=== PATIENT | male | born 1940 | race Two or more races ===

== ENCOUNTER 2024-11-23 21:17 | Inpatient (IN) | payer MEDICARE, OTHER ==
[~2024-11-23] VITALS: Ht 177.8 cm; Wt 69.9 kg
[~2024-11-23 21:17] MED LIST: CIPR-262 PO; LORA2VIA33 IM
[2024-11-23 23:14] LABS: BASOPHILS % (AUTO) 0.1 % (0.0-2.0); EOSINOPHILS # (AUTO) 0.3 K/uL (0.0-0.7); HEMATOCRIT 24 % (39-51); HEMOGLOBIN 8.1 g/dL (13.5-17.5); LYMPHOCYTES # (AUTO) 0.6 K/uL (0.8-4.8); LYMPHOCYTES % (AUTO) 9.5 % (20.0-44.0); MEAN CORPUSCULAR HEMOGLOBIN 37 PG (26.0-33.0); MEAN CORPUSCULAR HGB CONC 34 g/dl (31.0-36.0); MEAN CORPUSCULAR VOLUME 110 fL (80-96); MONOCYTES # (AUTO) 0.9 K/uL (0.1-1.30); MONOCYTES % (AUTO) 14.9 % (2.0-12.0); NEUTROPHILS # (AUTO) 4.5 K/uL (1.8-8.9); NEUTROPHILS % (AUTO) 71.5 % (43.0-81.0); RED BLOOD CELL COUNT(AUTO) 2.18 MIL/uL (4.5-6.0); RED CELL DISTRIBUTION WIDTH 19.3 % (11.5-15.0); WHITE BLOOD COUNT (AUTO) 6.3 K/uL (4.3-11.0)
[2024-11-23 23:34] LABS: CALCIUM, SERUM 9.8 mg/dL (8.5-10.1); CARBON DIOXIDE 28 mmol/L (21-32); CHLORIDE 114 mmol/L (98-107); CREATININE 1.4 mg/dL (0.6-1.3); GLUCOSE 57 mg/dL (74-106); POTASSIUM 4.7 mmol/L (3.5-5.1); SODIUM SERUM 149 mmol/L (136-145); UREA NITROGEN, BLOOD 57 mg/dL (7-18)
[2024-11-23 23:40] LABS: ACETAMINOPHEN < 10 ug/ml (10-30); ALANINE AMINOTRANSFERASE 81 U/L (12-78); ALBUMIN 3.4 g/dL (3.4-5.0); ALKALINE PHOSPHATASE 93 U/L (46-116); ASPARTATE AMINOTRANSFERASE 226 U/L (15-37); BILIRUBIN,DIRECT 1.1 mg/dL (0.0-0.2); TOTAL PROTEIN, SERUM 5.8 g/dL (6.4-8.2)
[2024-11-23 23:41] LABS: ALCOHOL, BLOOD < 3 mg/dL (0-10); SALICYLATE < 2.3 mg/dL (2.8-20.0)
[2024-11-23 23:48] LABS: PLATELET COUNT (AUTO) 29 K/uL (150-450)
[2024-11-24 00:07] LABS: AMPHETAMINE, URINE NEGATIVE (NEGATIVE); BARBITURATE, URINE NEGATIVE (NEGATIVE); BENZODIAZEPINE, URINE NEGATIVE (NEGATIVE); CANNABINOID, URINE NEGATIVE (NEGATIVE); COCCAINE, URINE NEGATIVE (NEGATIVE); PHENCYCLIDINE SCREEN,URINE NEGATIVE (NEGATIVE)
[2024-11-24 00:08] LABS: OPIATE, URINE POSITIVE (NEGATIVE)
[2024-11-24 00:27] LABS: APPEARANCE,URINE CLEAR (CLEAR); BILIRUBIN,URINE NEGATIVE (NEGATIVE); BLOOD, URINE 3+ Ery/uL (NEGATIVE); COLOR,URINE YELLOW (YELLOW); KETONES,URINE NEGATIVE (NEGATIVE); LEUKOCYTE ESTERASE ,URINE TRACE (NEGATIVE); NITRITE, URINE POSITIVE (NEGATIVE); PH,URINE 5.5 (5.0-8.0); PROTEIN,URINE 1+ mg/dl (NEGATIVE); UGLUCOSE NEGATIVE (NEGATIVE); UROBILINOGEN,URINE 0.2 EU/dL (0.2)
[2024-11-24 00:28] LABS: ADD URINE CULTURE YES; BACTERIA,URINE Moderate /HPF (None Seen); RBC,URINE 21-50 /HPF (0-2); SQUAMOUS EPITHELIAL CELL,UR Rare /HPF (None Seen)
[2024-11-24] MEDS ORDERED: Z GUARD REMEDY 4 OZ OINT TP PRN (00:30)
[2024-11-24] MEDS ORDERED: ONDANSETRON HCL/PF 4 MG/2 ML VIAL IVP PRN (00:30)
[2024-11-24] MEDS ORDERED: ACETAMINOPHEN 325 MG TABLET PO PRN ×2 (00:30→09:30)
[2024-11-24 00:33] LABS: ANISOCYTOSIS 1+; BASOPHILS % (MANUAL) 0 % (0.0-2.0); EOSINOPHILS % (MANUAL) 3 % (0-4); LYMPHOCYTES % (MANUAL) 11 % (16-48); MONOCYTES % (MANUAL) 14 % (0-11.0); NEUTROPHILS % (MANUAL) 72 (42-76); PLATELET ESTIMATE DECREASED
[2024-11-24] MEDS: IV NS 0.9% 1,000 ML BAG IV ONE (00:56)
[2024-11-24 03:40] VITALS: BP 101/57; TEMP 97.9; O2SAT 96
[2024-11-24] MEDS: IV D5W 1,000 ML IV PRN (04:38)
[2024-11-24] MEDS: CEFTRIAXONE 1 G in IV D5W 50 ML IV SCH (04:38)
[2024-11-24] MEDS: PANTOPRAZOLE 40 MG TABLET.DR PO SCH (06:31)
[2024-11-24 07:00] LABS: BASOPHILS % (AUTO) 0.2 % (0.0-2.0); EOSINOPHILS # (AUTO) 0.1 K/uL (0.0-0.7); EOSINOPHILS % (AUTO) 2.2 % (0.0-6.0); HEMATOCRIT 22 % (39-51); HEMOGLOBIN 7.9 g/dL (13.5-17.5); LYMPHOCYTES # (AUTO) 0.5 K/uL (0.8-4.8); LYMPHOCYTES % (AUTO) 9.3 % (20.0-44.0); MEAN CORPUSCULAR HEMOGLOBIN 38 PG (26.0-33.0); MEAN CORPUSCULAR HGB CONC 36 g/dl (31.0-36.0); MEAN CORPUSCULAR VOLUME 106 fL (80-96); MONOCYTES # (AUTO) 0.7 K/uL (0.1-1.30); NEUTROPHILS # (AUTO) 4.2 K/uL (1.8-8.9); NEUTROPHILS % (AUTO) 75.3 % (43.0-81.0); RED BLOOD CELL COUNT(AUTO) 2.09 MIL/uL (4.5-6.0); RED CELL DISTRIBUTION WIDTH 18.5 % (11.5-15.0); WHITE BLOOD COUNT (AUTO) 5.6 K/uL (4.3-11.0)
[2024-11-24 07:07] LABS: CALCIUM, SERUM 9.2 mg/dL (8.5-10.1); CREATININE 1.4 mg/dL (0.6-1.3); POTASSIUM 4.5 mmol/L (3.5-5.1)
[2024-11-24] MEDS ORDERED: ACET325T53 PO (08:57)
[2024-11-24] MEDS ORDERED: LACT20SO4 PO (08:57)
[2024-11-24] MEDS ORDERED: TIOT18CA3 INH (08:57)
[2024-11-24] MEDS ORDERED: IPRA3AMP23 NEB (08:57)
[2024-11-24] MEDS ORDERED: [UNRECOGNIZED DRUG - CODE] PO (08:57)
[2024-11-24] MEDS ORDERED: ERGO500093 PO (08:57)
[2024-11-24] MEDS ORDERED: ALBU6.7H9 IH (08:57)
[2024-11-24] MEDS ORDERED: FINA5TAB11 PO (08:57)
[2024-11-24] MEDS ORDERED: TAMS-12 PO (08:57)
[2024-11-24] MEDS ORDERED: MELA5TAB PO (08:57)
[2024-11-24] MEDS ORDERED: BREO ELLIPTA IH (08:57)
[2024-11-24] MEDS ORDERED: HEPARIN SODIUM, PORCINE 5000 UNITS/1 ML VIAL SQ SCH (09:00)
[2024-11-24 09:01] LABS: PLATELET COUNT (AUTO) 26 K/uL (150-450)
[2024-11-24] MEDS: IV D5/0.45 NACL 1,000 ML IV SCH (09:48)
[2024-11-24 11:40] LABS: LYMPHOCYTES % (MANUAL) 7 % (16-48); MONOCYTES % (MANUAL) 3 % (0-11.0); NEUTROPHILS % (MANUAL) 90 (42-76); PLATELET ESTIMATE DECREASED
[2024-11-24 11:41] LABS: ANISOCYTOSIS 1+; TARGET CELLS 1+
[2024-11-24] MEDS: LACTULOSE 10 G/15 ML UDC (PYXIS) PO SCH (13:00)
[2024-11-24] MEDS ORDERED: OLANZAPINE 10 MG VIAL IM PRN (13:30)
[2024-11-24] MEDS ORDERED: ALBUTEROL FS 2.5 MG/3 ML VIAL.NEB NEB PRN (13:30)
[2024-11-24] MEDS ORDERED: Medication Not On Formulary EA (Melatonin 5 MG) PO SCH (18:00)
[2024-11-24 20:00] VITALS: BP 96/54; TEMP 97.8; O2SAT 97
[2024-11-24 20:06] VITALS: O2SAT 96
[2024-11-24] MEDS: IPRATROPIUM NEB FS 0.5 MG/2.5 ML AMPUL.NEB NEB SCH (20:24)
[2024-11-24] MEDS: BUDESONIDE RESPULE INH 0.5 MG/2 ML AMPUL.NEB NEB SCH (20:24)
[2024-11-24 20:27] VITALS: O2SAT 99
[2024-11-25] VITALS (10 sets, daily range): BP systolic 93–100; BP diastolic 54–79; TEMP 97.3–98.4; O2SAT 93–99
[2024-11-25 06:48] LABS: ALBUMIN 3.1 g/dL (3.4-5.0); CREATININE 1.3 mg/dL (0.6-1.3); MAGNESIUM 2.6 mg/dL (1.8-2.4); PHOSPHORUS 4.4 mg/dL (2.5-4.9); POTASSIUM 4.2 mmol/L (3.5-5.1)
[2024-11-25 07:08] LABS: THYROID STIMULATING HORMONE 10.65 uIU/mL (0.358-3.74)
[2024-11-25 07:13] LABS: BASOPHILS % (AUTO) 0.1 % (0.0-2.0); EOSINOPHILS # (AUTO) 0.3 K/uL (0.0-0.7); EOSINOPHILS % (AUTO) 3.7 % (0.0-6.0); HEMATOCRIT 23 % (39-51); HEMOGLOBIN 7.8 g/dL (13.5-17.5); LYMPHOCYTES # (AUTO) 0.7 K/uL (0.8-4.8); LYMPHOCYTES % (AUTO) 8.7 % (20.0-44.0); MEAN CORPUSCULAR HEMOGLOBIN 36 PG (26.0-33.0); MEAN CORPUSCULAR HGB CONC 35 g/dl (31.0-36.0); MEAN CORPUSCULAR VOLUME 104 fL (80-96); MONOCYTES # (AUTO) 0.9 K/uL (0.1-1.30); MONOCYTES % (AUTO) 11.4 % (2.0-12.0); NEUTROPHILS # (AUTO) 5.7 K/uL (1.8-8.9); NEUTROPHILS % (AUTO) 76.1 % (43.0-81.0); RED BLOOD CELL COUNT(AUTO) 2.18 MIL/uL (4.5-6.0); RED CELL DISTRIBUTION WIDTH 18.6 % (11.5-15.0); WHITE BLOOD COUNT (AUTO) 7.5 K/uL (4.3-11.0)
[2024-11-25 07:17] LABS: BILIRUBIN,TOTAL 2.8 mg/dL (0.2-1.0); TOTAL PROTEIN, SERUM 5.8 g/dL (6.4-8.2)
[2024-11-25] MEDS: LEVOTHYROXINE SODIUM 100 MCG TABLET PO SCH (07:30)
[2024-11-25 07:42] LABS: PLATELET COUNT (AUTO) 29 K/uL (150-450)
[2024-11-25] MEDS: TAMSULOSIN 0.4 MG CAP.SR.24H PO SCH (08:43)
[2024-11-25] MEDS: FINASTERIDE (5 MG) 5 MG TABLET PO SCH (08:43)
[2024-11-25 09:15] LABS: LYMPHOCYTES % (MANUAL) 8 % (16-48); MONOCYTES % (MANUAL) 3 % (0-11.0); NEUTROPHILS % (MANUAL) 89 (42-76); PLATELET ESTIMATE DECREASED
[2024-11-25 09:16] LABS: ANISOCYTOSIS 1+; TARGET CELLS 1+
[2024-11-26] VITALS (12 sets, daily range): BP systolic 94–109; BP diastolic 50–84; TEMP 95.3–97.5; O2SAT 93–98
[2024-11-26 07:35] LABS: CALCIUM, SERUM 8.8 mg/dL (8.5-10.1); CREATININE 1.4 mg/dL (0.6-1.3); MAGNESIUM 2.7 mg/dL (1.8-2.4); PHOSPHORUS 3.7 mg/dL (2.5-4.9); POTASSIUM 4.1 mmol/L (3.5-5.1)
[2024-11-26 08:03] LABS: BASOPHILS % (AUTO) 0.1 % (0.0-2.0); EOSINOPHILS # (AUTO) 0.2 K/uL (0.0-0.7); EOSINOPHILS % (AUTO) 2.9 % (0.0-6.0); HEMATOCRIT 21 % (39-51); HEMOGLOBIN 7.5 g/dL (13.5-17.5); LYMPHOCYTES # (AUTO) 0.8 K/uL (0.8-4.8); LYMPHOCYTES % (AUTO) 9.8 % (20.0-44.0); MEAN CORPUSCULAR HEMOGLOBIN 36 PG (26.0-33.0); MEAN CORPUSCULAR HGB CONC 35 g/dl (31.0-36.0); MEAN CORPUSCULAR VOLUME 104 fL (80-96); MONOCYTES # (AUTO) 0.9 K/uL (0.1-1.30); MONOCYTES % (AUTO) 11.7 % (2.0-12.0); NEUTROPHILS # (AUTO) 6.1 K/uL (1.8-8.9); NEUTROPHILS % (AUTO) 75.5 % (43.0-81.0); RED BLOOD CELL COUNT(AUTO) 2.05 MIL/uL (4.5-6.0); RED CELL DISTRIBUTION WIDTH 18.5 % (11.5-15.0)
[2024-11-26 08:16] LABS: PLATELET COUNT (AUTO) 28 K/uL (150-450)
[2024-11-26] MEDS ORDERED: LORAZEPAM INJ 2 MG/ML VIAL IV PRN (11:00)
[2024-11-26 19:59] LABS: ANISOCYTOSIS 1+; BAND % (MANUAL) 4 % (0.0-5.0); EOSINOPHILS % (MANUAL) 5 % (0-4); LYMPHOCYTES % (MANUAL) 13 % (16-48); MONOCYTES % (MANUAL) 2 % (0-11.0); NEUTROPHILS % (MANUAL) 76 (42-76); PLATELET ESTIMATE DECREASED; ROULEAUX 1+
[2024-11-26 20:00] LABS: TARGET CELLS RARE
[2024-11-27] VITALS (17 sets, daily range): BP systolic 94–108; BP diastolic 59–63; TEMP 98.4–99.4; O2SAT 88–100
[2024-11-27] MEDS: RIFAXIMIN 550 MG TABLET PO SCH (08:41)
[2024-11-27] MEDS: ALBUTEROL FS 2.5 MG/3 ML VIAL.NEB NEB PRN (08:59)
[2024-11-27 10:44] LABS: CREATININE 1.5 mg/dL (0.6-1.3); POTASSIUM 4.3 mmol/L (3.5-5.1)
[2024-11-27] MEDS: IPRATROPIUM NEB FS 0.5 MG/2.5 ML AMPUL.NEB NEB SCH ×2 (10:44→23:36)
[2024-11-27 10:46] LABS: BASOPHILS % (AUTO) 0.2 % (0.0-2.0); EOSINOPHILS # (AUTO) 0.2 K/uL (0.0-0.7); EOSINOPHILS % (AUTO) 1.7 % (0.0-6.0); HEMATOCRIT 22 % (39-51); HEMOGLOBIN 7.6 g/dL (13.5-17.5); LYMPHOCYTES # (AUTO) 0.9 K/uL (0.8-4.8); LYMPHOCYTES % (AUTO) 10.1 % (20.0-44.0); MEAN CORPUSCULAR HEMOGLOBIN 37 PG (26.0-33.0); MEAN CORPUSCULAR HGB CONC 35 g/dl (31.0-36.0); MEAN CORPUSCULAR VOLUME 103 fL (80-96); MONOCYTES # (AUTO) 1.5 K/uL (0.1-1.30); MONOCYTES % (AUTO) 16.1 % (2.0-12.0); NEUTROPHILS # (AUTO) 6.7 K/uL (1.8-8.9); NEUTROPHILS % (AUTO) 71.9 % (43.0-81.0); RED BLOOD CELL COUNT(AUTO) 2.09 MIL/uL (4.5-6.0); RED CELL DISTRIBUTION WIDTH 19.2 % (11.5-15.0); WHITE BLOOD COUNT (AUTO) 9.4 K/uL (4.3-11.0)
[2024-11-27 10:50] LABS: PLATELET COUNT (AUTO) 32 K/uL (150-450)
[2024-11-27 11:07] LABS: PTH, INTACT 32 pg/mL (15-65)
[2024-11-27] MEDS: IV D5W 1,000 ML IV PRN (11:28)
[2024-11-27 16:01] LABS: ANISOCYTOSIS 1+; EOSINOPHILS % (MANUAL) 2 % (0-4); LYMPHOCYTES % (MANUAL) 11 % (16-48); MONOCYTES % (MANUAL) 16 % (0-11.0); NEUTROPHILS % (MANUAL) 71 (42-76); PLATELET ESTIMATE DECREASED
[2024-11-27 16:02] LABS: HYPOCHROMASIA 1+
[2024-11-27] MEDS: LACTULOSE UDC 200 G in SODIUM CHLORIDE IRRIG SOLUTION 400 ML IR ONE (22:00)
[2024-11-27 22:20] LABS: ABG OXYGEN SATURATION 98.8 % (94.0-98.0); ABG PCO2 43.5 mmHg (35.0-48.0); ABG PH 7.381 (7.350-7.450); ABG PO2 191.3 mmHg (83.0-108.0); ABG TOTAL HEMOGLOBIN 7.8 G/dL (13.5-17.5); COHb 0.5 % (0.5-1.5); MetHb 0.6 % (0.0-1.5); O2Hb 97.7 % (94.0-97.0); SITE, ABG LEFT RADIAL
[2024-11-27] MEDS: MORPHINE SULFATE INJ 2 MG/ML DISP.SYRIN IV ONE (22:30)
[2024-11-27] MEDS ORDERED: ACETAMINOPHEN 650 MG/SUPP.RECT RC PRN (22:30)
[2024-11-27] MEDS: ALBUTEROL FS 2.5 MG/3 ML VIAL.NEB NEB SCH (23:36)
[2024-11-28] VITALS (12 sets, daily range): BP systolic 11–119; BP diastolic 46–86; TEMP 97.3–97.7; O2SAT 92–100
[2024-11-28 07:59] LABS: CALCIUM, SERUM 8.6 mg/dL (8.5-10.1); CARBON DIOXIDE 24 mmol/L (21-32); CHLORIDE 119 mmol/L (98-107); CREATININE 1.4 mg/dL (0.6-1.3); GLUCOSE 108 mg/dL (74-106); POTASSIUM 4.1 mmol/L (3.5-5.1); SODIUM SERUM 147 mmol/L (136-145); UREA NITROGEN, BLOOD 58 mg/dL (7-18)
[2024-11-28 08:50] LABS: BASOPHILS % (AUTO) 0.1 % (0.0-2.0); EOSINOPHILS # (AUTO) 0.1 K/uL (0.0-0.7); EOSINOPHILS % (AUTO) 1.5 % (0.0-6.0); HEMATOCRIT 21 % (39-51); HEMOGLOBIN 7.2 g/dL (13.5-17.5); LYMPHOCYTES # (AUTO) 0.9 K/uL (0.8-4.8); LYMPHOCYTES % (AUTO) 12.5 % (20.0-44.0); MEAN CORPUSCULAR HEMOGLOBIN 36 PG (26.0-33.0); MEAN CORPUSCULAR HGB CONC 34 g/dl (31.0-36.0); MEAN CORPUSCULAR VOLUME 106 fL (80-96); MONOCYTES # (AUTO) 0.9 K/uL (0.1-1.30); MONOCYTES % (AUTO) 12.5 % (2.0-12.0); NEUTROPHILS % (AUTO) 73.4 % (43.0-81.0); RED BLOOD CELL COUNT(AUTO) 2.01 MIL/uL (4.5-6.0); RED CELL DISTRIBUTION WIDTH 19.4 % (11.5-15.0); WHITE BLOOD COUNT (AUTO) 6.9 K/uL (4.3-11.0)
[2024-11-28 09:02] LABS: PLATELET COUNT (AUTO) 24 K/uL (150-450)
[2024-11-28 11:45] LABS: INR 2.06 (0.91-1.10); PROTHROMBIN TIME 20.8 SECS (9.2-11.1)
[2024-11-28 13:33] LABS: ALBUMIN 2.4 g/dL (3.4-5.0); BILIRUBIN,TOTAL 2.8 mg/dL (0.2-1.0); TOTAL PROTEIN, SERUM 5.1 g/dL (6.4-8.2)
[2024-11-28] MEDS: IV D5W 1,000 ML IV PRN (16:42)
[2024-11-28 19:54] LABS: PLATELET ESTIMATE DECREASED
[2024-11-28 19:57] LABS: EOSINOPHILS % (MANUAL) 1 % (0-4); LYMPHOCYTES % (MANUAL) 13 % (16-48); MONOCYTES % (MANUAL) 14 % (0-11.0); NEUTROPHILS % (MANUAL) 72 (42-76)
[2024-11-28 19:58] LABS: ANISOCYTOSIS 1+; TARGET CELLS 1+
[2024-11-29] VITALS (15 sets, daily range): BP systolic 78–99; BP diastolic 40–63; TEMP 88.5–98; O2SAT 85–100
[2024-11-29] MEDS: PHYTONADIONE INJ 10 MG/1 ML AMPUL SQ ONE (09:21)
[2024-11-29] MEDS: LACTULOSE UDC 200 G in SODIUM CHLORIDE IRRIG SOLUTION 400 ML IR SCH (09:29)
[2024-11-29 10:24] LABS: BASOPHILS % (AUTO) 0.1 % (0.0-2.0); EOSINOPHILS # (AUTO) 0.3 K/uL (0.0-0.7); HEMATOCRIT 22 % (39-51); HEMOGLOBIN 7.4 g/dL (13.5-17.5); LYMPHOCYTES # (AUTO) 0.5 K/uL (0.8-4.8); MEAN CORPUSCULAR HEMOGLOBIN 36 PG (26.0-33.0); MEAN CORPUSCULAR HGB CONC 34 g/dl (31.0-36.0); MEAN CORPUSCULAR VOLUME 106 fL (80-96); MONOCYTES # (AUTO) 0.7 K/uL (0.1-1.30); MONOCYTES % (AUTO) 10.5 % (2.0-12.0); NEUTROPHILS # (AUTO) 5.1 K/uL (1.8-8.9); NEUTROPHILS % (AUTO) 76.4 % (43.0-81.0); RED BLOOD CELL COUNT(AUTO) 2.06 MIL/uL (4.5-6.0); RED CELL DISTRIBUTION WIDTH 20.4 % (11.5-15.0); WHITE BLOOD COUNT (AUTO) 6.7 K/uL (4.3-11.0)
[2024-11-29 10:28] LABS: PLATELET COUNT (AUTO) 23 K/uL (150-450)
[2024-11-29 10:47] LABS: ALBUMIN 2.4 g/dL (3.4-5.0); BILIRUBIN,TOTAL 2.8 mg/dL (0.2-1.0); CALCIUM, SERUM 8.6 mg/dL (8.5-10.1); CREATININE 1.1 mg/dL (0.6-1.3); MAGNESIUM 2.5 mg/dL (1.8-2.4); PHOSPHORUS 2.5 mg/dL (2.5-4.9); POTASSIUM 3.6 mmol/L (3.5-5.1); TOTAL PROTEIN, SERUM 5.1 g/dL (6.4-8.2)
[2024-11-29 11:51] LABS: EOSINOPHILS % (MANUAL) 1 % (0-4); LYMPHOCYTES % (MANUAL) 4 % (16-48); MONOCYTES % (MANUAL) 6 % (0-11.0); NEUTROPHILS % (MANUAL) 89 (42-76)
[2024-11-29 11:52] LABS: ANISOCYTOSIS 1+; PLATELET ESTIMATE DECREASED
[2024-11-29] MEDS: IV LR 1000 ML 1,000 ML BAG IV ONE (23:37)
[2024-11-30] VITALS (62 sets, daily range): BP systolic 78–130; BP diastolic 38–89; TEMP 93–98; O2SAT 89–100
[2024-11-30 04:21] LABS: BASOPHILS % (AUTO) 0.1 % (0.0-2.0); EOSINOPHILS # (AUTO) 0.5 K/uL (0.0-0.7); EOSINOPHILS % (AUTO) 7.4 % (0.0-6.0); LYMPHOCYTES # (AUTO) 0.8 K/uL (0.8-4.8); LYMPHOCYTES % (AUTO) 12.5 % (20.0-44.0); MEAN CORPUSCULAR HEMOGLOBIN 36 PG (26.0-33.0); MEAN CORPUSCULAR HGB CONC 34 g/dl (31.0-36.0); MEAN CORPUSCULAR VOLUME 104 fL (80-96); MONOCYTES # (AUTO) 0.6 K/uL (0.1-1.30); NEUTROPHILS # (AUTO) 4.3 K/uL (1.8-8.9); RED CELL DISTRIBUTION WIDTH 19.7 % (11.5-15.0); WHITE BLOOD COUNT (AUTO) 6.1 K/uL (4.3-11.0)
[2024-11-30 04:22] LABS: RED BLOOD CELL COUNT(AUTO) 1.74 MIL/uL (4.5-6.0)
[2024-11-30 04:25] LABS: HEMATOCRIT 18 % (39-51); HEMOGLOBIN 6.2 g/dL (13.5-17.5); PLATELET COUNT (AUTO) 16 K/uL (150-450)
[2024-11-30 04:32] LABS: ALANINE AMINOTRANSFERASE 71 U/L (12-78); ALKALINE PHOSPHATASE 77 U/L (46-116); ASPARTATE AMINOTRANSFERASE 107 U/L (15-37); BILIRUBIN,TOTAL 2.6 mg/dL (0.2-1.0); CALCIUM, SERUM 8.2 mg/dL (8.5-10.1); CARBON DIOXIDE 25 mmol/L (21-32); CHLORIDE 115 mmol/L (98-107); CREATININE 1.1 mg/dL (0.6-1.3); GLUCOSE 72 mg/dL (74-106); MAGNESIUM 2.2 mg/dL (1.8-2.4); PHOSPHORUS 2.3 mg/dL (2.5-4.9); POTASSIUM 3.2 mmol/L (3.5-5.1); SODIUM SERUM 146 mmol/L (136-145); TOTAL PROTEIN, SERUM 4.5 g/dL (6.4-8.2); UREA NITROGEN, BLOOD 47 mg/dL (7-18)
[2024-11-30] MEDS ORDERED: NOREPINEPHRINE 32 MG in IV NS 0.9% 218 ML IV PRN (05:00)
[2024-11-30 05:20] LABS: ANISOCYTOSIS 1+; BASOPHILS % (MANUAL) 0 % (0.0-2.0); EOSINOPHILS % (MANUAL) 6 % (0-4); HYPOCHROMASIA 1+; LYMPHOCYTES % (MANUAL) 11 % (16-48); MONOCYTES % (MANUAL) 8 % (0-11.0); NEUTROPHILS % (MANUAL) 75 (42-76); PLATELET ESTIMATE DECREASED; TARGET CELLS 1+
[2024-11-30] MEDS: CEFTRIAXONE 1GM BAG (ER ONLY) 50 ML IV ONE (05:30)
[2024-11-30] MEDS: PANTOPRAZOLE 40 MG VIAL IV SCH (05:41)
[2024-11-30] MEDS ORDERED: ALBUMIN 25% 50 ML IV ONE (05:46)
[2024-11-30] MEDS: ALBUMIN 25% 12.5 GM/50 ML BOTTLE IV ONE (05:57)
[2024-11-30] MEDS: VANCOMYCIN 1 GM in IV D5W 250ml IV ONE (07:01)
[2024-11-30 08:12] LABS: BILIRUBIN,DIRECT 1.1 mg/dL (0.0-0.2)
[2024-11-30 08:27] LABS: LACTIC ACID REFLEX 2.3 mmol/L (0.4-1.9)
[2024-11-30] MEDS: CEFEPIME 2 GM in IV D5W 100 ML IV SCH (08:54)
[2024-11-30] MEDS ORDERED: CEFEPIME 1 GM in IV D5W 50 ML IV SCH (09:00)
[2024-11-30] MEDS: POTASSIUM CL. PREMIX PERIPHER. 50 ML IV SCH (10:45)
[2024-11-30 15:42] LABS: INR 1.88 (0.91-1.10); PARTIAL THROMBOPLASTIN TIME 48.5 SEC (24.3-34.3); PROTHROMBIN TIME 19.1 SECS (9.2-11.1)
[2024-11-30 15:43] LABS: D-DIMER 4.49 mg/L(FEU (0.17-0.50)
[2024-11-30] MEDS: VANCOMYCIN 750 MG in IV D5W 250 ML IV SCH (16:32)
[2024-11-30] MEDS: Sodium Phosphate 15 MMOL in IV NS 0.9% 245 ML IV SCH (16:55)
[2024-11-30 18:37] LABS: RHEUMATOID FACTOR SCREEN NEGATIVE (NEGATIVE)
[2024-11-30 20:00] LABS: HEMOGLOBIN 7.2 g/dL (13.5-17.5)
[2024-12-01] VITALS (48 sets, daily range): BP systolic 75–139; BP diastolic 34–66; TEMP 95–97; O2SAT 85–100
[2024-12-01 04:56] LABS: BASOPHILS % (AUTO) 0.2 % (0.0-2.0); EOSINOPHILS # (AUTO) 0.1 K/uL (0.0-0.7); EOSINOPHILS % (AUTO) 1.2 % (0.0-6.0); HEMOGLOBIN 7.1 g/dL (13.5-17.5); LYMPHOCYTES # (AUTO) 0.5 K/uL (0.8-4.8); LYMPHOCYTES % (AUTO) 6.9 % (20.0-44.0); MEAN CORPUSCULAR HEMOGLOBIN 35 PG (26.0-33.0); MEAN CORPUSCULAR HGB CONC 35 g/dl (31.0-36.0); MEAN CORPUSCULAR VOLUME 100 fL (80-96); MONOCYTES # (AUTO) 0.3 K/uL (0.1-1.30); MONOCYTES % (AUTO) 4.9 % (2.0-12.0); NEUTROPHILS # (AUTO) 6.1 K/uL (1.8-8.9); NEUTROPHILS % (AUTO) 86.8 % (43.0-81.0); RED BLOOD CELL COUNT(AUTO) 2.02 MIL/uL (4.5-6.0); RED CELL DISTRIBUTION WIDTH 19.7 % (11.5-15.0)
[2024-12-01 04:57] LABS: ALBUMIN 2.2 g/dL (3.4-5.0); CREATININE 1.2 mg/dL (0.6-1.3); MAGNESIUM 2.2 mg/dL (1.8-2.4); PHOSPHORUS 2.9 mg/dL (2.5-4.9); POTASSIUM 3.5 mmol/L (3.5-5.1); TOTAL PROTEIN, SERUM 4.7 g/dL (6.4-8.2)
[2024-12-01 05:06] LABS: HEMATOCRIT 20 % (39-51)
[2024-12-01 05:07] LABS: PLATELET COUNT (AUTO) 20 K/uL (150-450)
[2024-12-01 05:25] LABS: D-DIMER 4.07 mg/L(FEU (0.17-0.50); INR 1.94 (0.91-1.10); PARTIAL THROMBOPLASTIN TIME 54.9 SEC (24.3-34.3); PROTHROMBIN TIME 19.7 SECS (9.2-11.1)
[2024-12-01 05:52] LABS: EOSINOPHILS % (MANUAL) 1 % (0-4); LYMPHOCYTES % (MANUAL) 6 % (16-48); MONOCYTES % (MANUAL) 5 % (0-11.0); NEUTROPHILS % (MANUAL) 88 (42-76); PLATELET ESTIMATE DECREASED
[2024-12-01 05:53] LABS: ANISOCYTOSIS 1+; TARGET CELLS 1+
[2024-12-01 07:07] LABS: HEPATITIS B SURFACE AB (QUAL) Reactive (.)
[2024-12-01 08:09] LABS: IMMUNOGLOBULIN A, SERUM 613 mg/dL (61-437); IMMUNOGLOBULIN G, SERUM 1277 mg/dL (603-1613); IMMUNOGLOBULIN M, SERUM 100 mg/dL (15-143)
[2024-12-01 10:10] LABS: *ANA ANTI-CENTROMERE B AB <0.2 AI (0.0-0.9); *ANA ANTI-DNA(DS) AB, QN <1 IU/mL (0-9); *ANA ANTI-JO-1 <0.2 AI (0.0-0.9); *ANA ANTICHROMATIN ANTIBODY <0.2 AI (0.0-0.9); *ANA RNP ANTIBODIES 0.2 AI (0.0-0.9); *ANA SJOGREN'S ANTI-SS-A 0.4 AI (0.0-0.9); *ANA SJOGREN'S ANTI-SS-B <0.2 AI (0.0-0.9); *ANAANTI-SCLERODERMA-70 AB <0.2 AI (0.0-0.9); *ANASMITH AB <0.2 AI (0.0-0.9)
[2024-12-01] MEDS ORDERED: TPN/PPN PER PHARMACY IV PRN (10:30)
[2024-12-01] MEDS: PPN IV SCH (12:16)
[2024-12-01] MEDS: diphenhydrAMINE HCL 50 MG/ML VIAL IV ONE (13:00)
[2024-12-01] MEDS: ACETAMINOPHEN 325 MG TABLET PO ONE (13:44)
[2024-12-01] MEDS: PHYTONADIONE INJ 10 MG/1 ML AMPUL SQ ONE (13:44)
[2024-12-01 15:36] LABS: BASOPHILS % (AUTO) 0.1 % (0.0-2.0); EOSINOPHILS # (AUTO) 0.2 K/uL (0.0-0.7); EOSINOPHILS % (AUTO) 3.7 % (0.0-6.0); HEMATOCRIT 21 % (39-51); HEMOGLOBIN 7.3 g/dL (13.5-17.5); LYMPHOCYTES # (AUTO) 0.5 K/uL (0.8-4.8); LYMPHOCYTES % (AUTO) 8.1 % (20.0-44.0); MEAN CORPUSCULAR HEMOGLOBIN 36 PG (26.0-33.0); MEAN CORPUSCULAR HGB CONC 36 g/dl (31.0-36.0); MEAN CORPUSCULAR VOLUME 101 fL (80-96); MONOCYTES # (AUTO) 0.4 K/uL (0.1-1.30); MONOCYTES % (AUTO) 6.9 % (2.0-12.0); NEUTROPHILS % (AUTO) 81.2 % (43.0-81.0); RED BLOOD CELL COUNT(AUTO) 2.06 MIL/uL (4.5-6.0); RED CELL DISTRIBUTION WIDTH 20.2 % (11.5-15.0); WHITE BLOOD COUNT (AUTO) 6.2 K/uL (4.3-11.0)
[2024-12-01 15:56] LABS: PLATELET COUNT (AUTO) 35 K/uL (150-450)
[2024-12-01] MEDS: BLOOD SUGAR DIAGNOSTIC 1 EACH STRIP IN SCH (17:26)
[2024-12-01] MEDS: INSULIN REGULAR, HUMAN 100 UNIT/ML 10 ML VIAL SQ SCH (18:00)
[2024-12-01] MEDS ORDERED: DEXTROSE 50%-WATER 50 ML DISP.SYRIN IV PRN (18:00)
[2024-12-01 20:01] LABS: BAND % (MANUAL) 5 % (0.0-5.0); EOSINOPHILS % (MANUAL) 6 % (0-4); LYMPHOCYTES % (MANUAL) 9 % (16-48); MONOCYTES % (MANUAL) 3 % (0-11.0); NEUTROPHILS % (MANUAL) 77 (42-76)
[2024-12-01 20:02] LABS: ANISOCYTOSIS 1+; PLATELET ESTIMATE DECRE; ROULEAUX 1+
[2024-12-01 20:13] LABS: ABG BASE EXCESS -3.1 mmol/L (-2.0-3.0); ABG OXYGEN SATURATION 97.5 % (94.0-98.0); ABG PH 7.295 (7.350-7.450); ABG PO2 114.6 mmHg (83.0-108.0); ABG TOTAL HEMOGLOBIN 7.6 G/dL (13.5-17.5); COHb 1.2 % (0.5-1.5); MetHb 0.2 % (0.0-1.5); O2Hb 96.1 % (94.0-97.0); SITE, ABG RIGHT BRACHIAL
[2024-12-01] MEDS ORDERED: CEFEPIME 1 GM VIAL ONE (22:44)
[2024-12-02] VITALS (34 sets, daily range): BP systolic 92–139; BP diastolic 43–122; TEMP 97–98; O2SAT 92–100
[2024-12-02] MEDS ORDERED: VANCOMYCIN 1 GM /D5W 250 ML PB IV ONE (04:48)
[2024-12-02 05:05] LABS: BASOPHILS % (AUTO) 0.1 % (0.0-2.0); CALCIUM, SERUM 7.9 mg/dL (8.5-10.1); CREATININE 1.1 mg/dL (0.6-1.3); EOSINOPHILS # (AUTO) 0.6 K/uL (0.0-0.7); EOSINOPHILS % (AUTO) 8.2 % (0.0-6.0); HEMATOCRIT 21 % (39-51); HEMOGLOBIN 7.1 g/dL (13.5-17.5); LYMPHOCYTES # (AUTO) 0.7 K/uL (0.8-4.8); LYMPHOCYTES % (AUTO) 10.3 % (20.0-44.0); MEAN CORPUSCULAR HEMOGLOBIN 35 PG (26.0-33.0); MEAN CORPUSCULAR HGB CONC 35 g/dl (31.0-36.0); MEAN CORPUSCULAR VOLUME 101 fL (80-96); MONOCYTES # (AUTO) 0.5 K/uL (0.1-1.30); NEUTROPHILS % (AUTO) 74.4 % (43.0-81.0); PHOSPHORUS 3.1 mg/dL (2.5-4.9); POTASSIUM 3.7 mmol/L (3.5-5.1); RED BLOOD CELL COUNT(AUTO) 2.03 MIL/uL (4.5-6.0); RED CELL DISTRIBUTION WIDTH 20.6 % (11.5-15.0); WHITE BLOOD COUNT (AUTO) 6.8 K/uL (4.3-11.0)
[2024-12-02 05:17] LABS: INR 1.63 (0.91-1.10); PARTIAL THROMBOPLASTIN TIME 54.4 SEC (24.3-34.3); PROTHROMBIN TIME 16.7 SECS (9.2-11.1)
[2024-12-02 05:27] LABS: D-DIMER 4.78 mg/L(FEU (0.17-0.50)
[2024-12-02 05:41] LABS: PLATELET COUNT (AUTO) 36 K/uL (150-450)
[2024-12-02 05:58] LABS: EOSINOPHILS % (MANUAL) 9 % (0-4); LYMPHOCYTES % (MANUAL) 10 % (16-48); MONOCYTES % (MANUAL) 4 % (0-11.0); NEUTROPHILS % (MANUAL) 77 (42-76); PLATELET ESTIMATE DECREASED
[2024-12-02 05:59] LABS: ANISOCYTOSIS 1+; TARGET CELLS FEW
[2024-12-02 07:07] LABS: FOLIC ACID 6.2 ng/mL (>3.0)
[2024-12-02] MEDS ORDERED: IV D5W 1,000 ML IV PRN ×2 (07:30→13:18)
[2024-12-02] MEDS: FUROSEMIDE 40 MG/4 ML VIAL IV ONE (10:26)
[2024-12-02] MEDS: PPN IV SCH (14:20)
[2024-12-02] MEDS ORDERED: IPRATROPIUM NEB FS 0.5 MG/2.5 ML AMPUL.NEB NEB PRN (20:00)
[2024-12-02] MEDS: IV NS 0.9% 250 ML IV PRN (21:01)
[2024-12-03] VITALS (36 sets, daily range): BP systolic 90–133; BP diastolic 37–90; TEMP 97–97.9; O2SAT 89–100
[2024-12-03 04:59] LABS: BASOPHILS % (AUTO) 0.1 % (0.0-2.0); EOSINOPHILS # (AUTO) 0.3 K/uL (0.0-0.7); EOSINOPHILS % (AUTO) 3.8 % (0.0-6.0); HEMATOCRIT 22 % (39-51); HEMOGLOBIN 7.8 g/dL (13.5-17.5); LYMPHOCYTES # (AUTO) 0.6 K/uL (0.8-4.8); MEAN CORPUSCULAR HEMOGLOBIN 36 PG (26.0-33.0); MEAN CORPUSCULAR HGB CONC 36 g/dl (31.0-36.0); MEAN CORPUSCULAR VOLUME 101 fL (80-96); MONOCYTES # (AUTO) 0.8 K/uL (0.1-1.30); MONOCYTES % (AUTO) 10.6 % (2.0-12.0); NEUTROPHILS # (AUTO) 5.8 K/uL (1.8-8.9); NEUTROPHILS % (AUTO) 77.5 % (43.0-81.0); RED BLOOD CELL COUNT(AUTO) 2.17 MIL/uL (4.5-6.0); RED CELL DISTRIBUTION WIDTH 19.8 % (11.5-15.0); WHITE BLOOD COUNT (AUTO) 7.5 K/uL (4.3-11.0)
[2024-12-03 05:03] LABS: CALCIUM, SERUM 7.7 mg/dL (8.5-10.1); CREATININE 1.3 mg/dL (0.6-1.3); PHOSPHORUS 2.3 mg/dL (2.5-4.9); POTASSIUM 3.4 mmol/L (3.5-5.1)
[2024-12-03 05:09] LABS: D-DIMER 4.43 mg/L(FEU (0.17-0.50); INR 1.72 (0.91-1.10); PROTHROMBIN TIME 17.6 SECS (9.2-11.1)
[2024-12-03 05:12] LABS: *SPE A/G RATIO 1.3 (0.7-1.7); *SPE ALBUMIN 3.2 g/dL (2.9-4.4); *SPE ALPHA-1-GLOBULIN 0.2 g/dL (0.0-0.4); *SPE ALPHA-2-GLOBULIN 0.3 g/dL (0.4-1.0); *SPE BETA GLOBULIN 0.8 g/dL (0.7-1.3); *SPE GLOBULIN, TOTAL 2.5 g/dL (2.2-3.9); *SPE M-SPIKE Not Observed g/dL (Not Observed); *SPE PROTEIN TOTAL 5.7 g/dL (6.0-8.5); *SPEGAMMA GLOBULIN 1.2 g/dL (0.4-1.8)
[2024-12-03 05:26] LABS: PLATELET COUNT (AUTO) 37 K/uL (150-450)
[2024-12-03 05:31] LABS: PLATELET ESTIMATE DECREASED
[2024-12-03 05:35] LABS: EOSINOPHILS % (MANUAL) 7 % (0-4); LYMPHOCYTES % (MANUAL) 8 % (16-48); MONOCYTES % (MANUAL) 13 % (0-11.0); NEUTROPHILS % (MANUAL) 72 (42-76)
[2024-12-03 05:36] LABS: ANISOCYTOSIS 1+
[2024-12-03 05:39] LABS: TARGET CELLS FEW
[2024-12-03] MEDS: POTASSIUM PHOSPHATE MM 7.5 MMOL in IV NS 0.9% 100 ML IV SCH (10:44)
[2024-12-03 17:07] LABS: FREE KAPPA LT CHAINS SERUM 119.1 mg/L (3.3-19.4); KAPPA/LAMBDA RATIO SERUM 1.19 (0.26-1.65)
[2024-12-03] MEDS: TPN IV SCH (22:01)
[2024-12-04] VITALS (35 sets, daily range): BP systolic 85–123; BP diastolic 40–89; TEMP 96.6–98.8; O2SAT 92–99
[2024-12-04 04:33] LABS: CALCIUM, SERUM 7.5 mg/dL (8.5-10.1); CREATININE 1.3 mg/dL (0.6-1.3); MAGNESIUM 2.1 mg/dL (1.8-2.4); PHOSPHORUS 3.3 mg/dL (2.5-4.9); POTASSIUM 3.7 mmol/L (3.5-5.1)
[2024-12-04 04:43] LABS: INR 1.85 (0.91-1.10); PARTIAL THROMBOPLASTIN TIME 62.9 SEC (24.3-34.3); PROTHROMBIN TIME 18.8 SECS (9.2-11.1)
[2024-12-04 04:45] LABS: BASOPHILS % (AUTO) 0.1 % (0.0-2.0); D-DIMER 4.87 mg/L(FEU (0.17-0.50); EOSINOPHILS # (AUTO) 0.3 K/uL (0.0-0.7); EOSINOPHILS % (AUTO) 4.2 % (0.0-6.0); HEMATOCRIT 24 % (39-51); HEMOGLOBIN 8.3 g/dL (13.5-17.5); LYMPHOCYTES # (AUTO) 0.7 K/uL (0.8-4.8); LYMPHOCYTES % (AUTO) 9.4 % (20.0-44.0); MEAN CORPUSCULAR HEMOGLOBIN 35 PG (26.0-33.0); MEAN CORPUSCULAR HGB CONC 34 g/dl (31.0-36.0); MEAN CORPUSCULAR VOLUME 103 fL (80-96); MONOCYTES % (AUTO) 14.3 % (2.0-12.0); RED BLOOD CELL COUNT(AUTO) 2.37 MIL/uL (4.5-6.0); RED CELL DISTRIBUTION WIDTH 20.2 % (11.5-15.0)
[2024-12-04 04:52] LABS: PLATELET COUNT (AUTO) 39 K/uL (150-450)
[2024-12-04 05:35] LABS: ANISOCYTOSIS 1+; EOSINOPHILS % (MANUAL) 4 % (0-4); LYMPHOCYTES % (MANUAL) 11 % (16-48); MONOCYTES % (MANUAL) 12 % (0-11.0); NEUTROPHILS % (MANUAL) 73 (42-76); PLATELET ESTIMATE DECREASED
[2024-12-04 05:36] LABS: TARGET CELLS FEW
[2024-12-04 09:04] LABS: ABG BASE EXCESS -5.3 mmol/L (-2.0-3.0); ABG OXYGEN SATURATION 96.8 % (94.0-98.0); ABG PCO2 76.6 mmHg (35.0-48.0); ABG PH 7.121 (7.350-7.450); ABG PO2 105.7 mmHg (83.0-108.0); ABG TOTAL HEMOGLOBIN 8.8 G/dL (13.5-17.5); COHb 0.4 % (0.5-1.5); MetHb 0.1 % (0.0-1.5); O2Hb 96.3 % (94.0-97.0); SITE, ABG LEFT RADIAL
[2024-12-04] MEDS: diphenhydrAMINE HCL 50 MG/ML VIAL IV ONE (10:00)
[2024-12-04] MEDS: ACETAMINOPHEN 325 MG TABLET PO ONE (10:00)
[2024-12-04 12:45] LABS: ABG BASE EXCESS -6.9 mmol/L (-2.0-3.0); ABG OXYGEN SATURATION 97.2 % (94.0-98.0); ABG PH 7.295 (7.350-7.450); ABG PO2 103.3 mmHg (83.0-108.0); COHb 0.2 % (0.5-1.5); MetHb 0.3 % (0.0-1.5); O2Hb 96.7 % (94.0-97.0); SITE, ABG RIGHT RADIAL
[2024-12-04] MEDS: VANCOMYCIN 750 MG in IV D5W 250 ML IV SCH (17:08)
[2024-12-05] VITALS (33 sets, daily range): BP systolic 86–134; BP diastolic 33–70; TEMP 96–98; O2SAT 96–100
[2024-12-05 03:56] LABS: CALCIUM, SERUM 7.1 mg/dL (8.5-10.1); MAGNESIUM 1.6 mg/dL (1.8-2.4); PHOSPHORUS 2.6 mg/dL (2.5-4.9); POTASSIUM 3.9 mmol/L (3.5-5.1)
[2024-12-05 04:03] LABS: INR 1.84 (0.91-1.10); PARTIAL THROMBOPLASTIN TIME 57.8 SEC (24.3-34.3); PROTHROMBIN TIME 18.7 SECS (9.2-11.1)
[2024-12-05 04:04] LABS: D-DIMER 6.32 mg/L(FEU (0.17-0.50)
[2024-12-05 04:12] LABS: EOSINOPHILS # (AUTO) 0.2 K/uL (0.0-0.7); EOSINOPHILS % (AUTO) 1.7 % (0.0-6.0); HEMATOCRIT 22 % (39-51); HEMOGLOBIN 7.7 g/dL (13.5-17.5); LYMPHOCYTES # (AUTO) 0.4 K/uL (0.8-4.8); LYMPHOCYTES % (AUTO) 4.1 % (20.0-44.0); MEAN CORPUSCULAR HEMOGLOBIN 36 PG (26.0-33.0); MEAN CORPUSCULAR HGB CONC 35 g/dl (31.0-36.0); MEAN CORPUSCULAR VOLUME 103 fL (80-96); MONOCYTES # (AUTO) 1.8 K/uL (0.1-1.30); NEUTROPHILS # (AUTO) 6.8 K/uL (1.8-8.9); NEUTROPHILS % (AUTO) 74.2 % (43.0-81.0); RED BLOOD CELL COUNT(AUTO) 2.16 MIL/uL (4.5-6.0); RED CELL DISTRIBUTION WIDTH 20.2 % (11.5-15.0); WHITE BLOOD COUNT (AUTO) 9.2 K/uL (4.3-11.0)
[2024-12-05 04:16] LABS: PLATELET COUNT (AUTO) 45 K/uL (150-450)
[2024-12-05] MEDS: TPN #2 IV SCH (05:12)
[2024-12-05 05:56] LABS: BASOPHILS % (MANUAL) 0 % (0.0-2.0); EOSINOPHILS % (MANUAL) 6 % (0-4); LYMPHOCYTES % (MANUAL) 8 % (16-48); MONOCYTES % (MANUAL) 15 % (0-11.0); NEUTROPHILS % (MANUAL) 71 (42-76); PLATELET ESTIMATE DECREASED
[2024-12-05 05:57] LABS: ANISOCYTOSIS 1+
[2024-12-05 08:52] LABS: ABG BASE EXCESS -7.9 mmol/L (-2.0-3.0); ABG OXYGEN SATURATION 93.6 % (94.0-98.0); ABG PCO2 38.2 mmHg (35.0-48.0); ABG PO2 69.5 mmHg (83.0-108.0); ABG TOTAL HEMOGLOBIN 7.5 G/dL (13.5-17.5); COHb 0.5 % (0.5-1.5); MetHb 0.1 % (0.0-1.5); SITE, ABG LEFT RADIAL
[2024-12-05] MEDS ORDERED: NOREPINEPHRINE 8 MG in IV D5W 242 ML IV PRN ×2 (09:30→10:00)
[2024-12-05] MEDS: Magnesium 1GM/D5W 100ML PREMIX 100 ML IV SCH (10:14)
[2024-12-05] MEDS: TPN #3 IV SCH (14:57)
[2024-12-05 15:09] LABS: CALCIUM, SERUM 7.3 mg/dL (8.5-10.1); CREATININE 2.2 mg/dL (0.6-1.3); POTASSIUM 3.5 mmol/L (3.5-5.1)
[2024-12-05] MEDS: ALBUMIN 25% 25 GM in PREMIX 1 EA IV SCH (15:34)
[2024-12-06] VITALS (48 sets, daily range): BP systolic 94–147; BP diastolic 38–61; TEMP 96.5–98.9; O2SAT 97–100
[2024-12-06 04:26] LABS: BASOPHILS % (AUTO) 0.1 % (0.0-2.0); EOSINOPHILS # (AUTO) 0.1 K/uL (0.0-0.7); EOSINOPHILS % (AUTO) 2.5 % (0.0-6.0); LYMPHOCYTES # (AUTO) 0.7 K/uL (0.8-4.8); LYMPHOCYTES % (AUTO) 12.2 % (20.0-44.0); MEAN CORPUSCULAR HEMOGLOBIN 36 PG (26.0-33.0); MEAN CORPUSCULAR HGB CONC 35 g/dl (31.0-36.0); MEAN CORPUSCULAR VOLUME 102 fL (80-96); MONOCYTES # (AUTO) 1.3 K/uL (0.1-1.30); MONOCYTES % (AUTO) 22.5 % (2.0-12.0); NEUTROPHILS # (AUTO) 3.6 K/uL (1.8-8.9); NEUTROPHILS % (AUTO) 62.7 % (43.0-81.0); RED CELL DISTRIBUTION WIDTH 19.3 % (11.5-15.0); WHITE BLOOD COUNT (AUTO) 5.8 K/uL (4.3-11.0)
[2024-12-06 04:33] LABS: CALCIUM, SERUM 7.3 mg/dL (8.5-10.1); CREATININE 2.4 mg/dL (0.6-1.3); MAGNESIUM 1.8 mg/dL (1.8-2.4); PHOSPHORUS 2.4 mg/dL (2.5-4.9); POTASSIUM 3.6 mmol/L (3.5-5.1)
[2024-12-06 04:37] LABS: RED BLOOD CELL COUNT(AUTO) 1.71 MIL/uL (4.5-6.0)
[2024-12-06 04:38] LABS: HEMATOCRIT 17 % (39-51); HEMOGLOBIN 6.1 g/dL (13.5-17.5); PLATELET COUNT (AUTO) 32 K/uL (150-450)
[2024-12-06 04:52] LABS: INR 2.12 (0.91-1.10); PROTHROMBIN TIME 21.4 SECS (9.2-11.1)
[2024-12-06 05:08] LABS: D-DIMER 5.87 mg/L(FEU (0.17-0.50)
[2024-12-06 05:09] LABS: PARTIAL THROMBOPLASTIN TIME 80.1 SEC (24.3-34.3)
[2024-12-06 05:58] LABS: ANISOCYTOSIS 1+; BASOPHILS % (MANUAL) 0 % (0.0-2.0); EOSINOPHILS % (MANUAL) 3 % (0-4); HYPOCHROMASIA FEW; LYMPHOCYTES % (MANUAL) 11 % (16-48); MONOCYTES % (MANUAL) 21 % (0-11.0); NEUTROPHILS % (MANUAL) 65 (42-76); PLATELET ESTIMATE DECREASED
[2024-12-06 07:11] LABS: *HCV QUANTITATION 884000 IU/mL (.); *HCV log10 5.946 (.)
[2024-12-06] MEDS: TPN #4 IV SCH (08:21)
[2024-12-06 08:27] LABS: ABG BASE EXCESS -7.5 mmol/L (-2.0-3.0); ABG OXYGEN SATURATION 96.9 % (94.0-98.0); ABG PCO2 40.7 mmHg (35.0-48.0); ABG PH 7.278 (7.350-7.450); ABG PO2 93.8 mmHg (83.0-108.0); ABG TOTAL HEMOGLOBIN 6.8 G/dL (13.5-17.5); COHb 0.4 % (0.5-1.5); MetHb 0.3 % (0.0-1.5); O2Hb 96.2 % (94.0-97.0)
[2024-12-06] MEDS: CEFEPIME 2 GM in IV D5W 100 ML IV SCH (10:09)
[2024-12-06] MEDS: ALBUMIN 25% 25 GM in PREMIX 1 EA IV SCH (14:58)
[2024-12-06] MEDS ORDERED: PHYTONADIONE INJ 10 MG/1 ML AMPUL SQ SCH (16:00)
[2024-12-06] MEDS: diphenhydrAMINE HCL 50 MG/ML VIAL IV ONE ×3 (16:00→21:53)
[2024-12-06] MEDS ORDERED: VANCOMYCIN 750 MG in IV D5W 250 ML IV SCH (16:00)
[2024-12-06] MEDS: POTASSIUM PHOSPHATE MM 7.5 MMOL in IV NS 0.9% 100 ML IV SCH (16:21)
[2024-12-06 16:42] LABS: BASOPHILS % (AUTO) 0.1 % (0.0-2.0); EOSINOPHILS # (AUTO) 0.2 K/uL (0.0-0.7); EOSINOPHILS % (AUTO) 4.5 % (0.0-6.0); LYMPHOCYTES # (AUTO) 0.4 K/uL (0.8-4.8); LYMPHOCYTES % (AUTO) 8.7 % (20.0-44.0); MEAN CORPUSCULAR HEMOGLOBIN 35 PG (26.0-33.0); MEAN CORPUSCULAR HGB CONC 35 g/dl (31.0-36.0); MEAN CORPUSCULAR VOLUME 100 fL (80-96); MONOCYTES # (AUTO) 0.9 K/uL (0.1-1.30); MONOCYTES % (AUTO) 19.5 % (2.0-12.0); NEUTROPHILS % (AUTO) 67.2 % (43.0-81.0); RED CELL DISTRIBUTION WIDTH 18.4 % (11.5-15.0); WHITE BLOOD COUNT (AUTO) 4.4 K/uL (4.3-11.0)
[2024-12-06] MEDS: THERAHONEY GEL 1.5 OZ TUBE TP SCH (16:47)
[2024-12-06 17:34] LABS: HEMATOCRIT 17 % (39-51); PLATELET COUNT (AUTO) 30 K/uL (150-450)
[2024-12-06] MEDS: PHYTONADIONE INJ 10 MG/1 ML AMPUL SQ ONE (18:28)
[2024-12-06] MEDS: PHYTONADIONE INJ 10 MG/1 ML AMPUL ONE (18:30)
[2024-12-06 20:52] LABS: ANISOCYTOSIS 1+; BAND % (MANUAL) 5 % (0.0-5.0); EOSINOPHILS % (MANUAL) 1 % (0-4); LYMPHOCYTES % (MANUAL) 20 % (16-48); MONOCYTES % (MANUAL) 7 % (0-11.0); NEUTROPHILS % (MANUAL) 67 (42-76); PLATELET ESTIMATE DECRE
[2024-12-06 20:53] LABS: ROULEAUX 1+; TARGET CELLS RARE
[2024-12-06] MEDS: ACETAMINOPHEN 325 MG TABLET PO ONE (21:14)
[2024-12-06] MEDS ORDERED: diphenhydrAMINE HCL 50 MG/ML VIAL IV PRN (22:00)
[2024-12-07] VITALS (54 sets, daily range): BP systolic 59–160; BP diastolic 10–66; TEMP 96.8–97.8; O2SAT 38–100
[2024-12-07 06:13] LABS: BASOPHILS % (AUTO) 0.1 % (0.0-2.0); EOSINOPHILS # (AUTO) 0.2 K/uL (0.0-0.7); EOSINOPHILS % (AUTO) 4.2 % (0.0-6.0); HEMATOCRIT 23 % (39-51); HEMOGLOBIN 7.9 g/dL (13.5-17.5); LYMPHOCYTES # (AUTO) 0.4 K/uL (0.8-4.8); LYMPHOCYTES % (AUTO) 8.5 % (20.0-44.0); MEAN CORPUSCULAR HEMOGLOBIN 34 PG (26.0-33.0); MEAN CORPUSCULAR HGB CONC 34 g/dl (31.0-36.0); MEAN CORPUSCULAR VOLUME 99 fL (80-96); MONOCYTES % (AUTO) 19.3 % (2.0-12.0); NEUTROPHILS # (AUTO) 3.4 K/uL (1.8-8.9); NEUTROPHILS % (AUTO) 67.9 % (43.0-81.0); RED BLOOD CELL COUNT(AUTO) 2.33 MIL/uL (4.5-6.0); RED CELL DISTRIBUTION WIDTH 17.2 % (11.5-15.0); WHITE BLOOD COUNT (AUTO) 4.9 K/uL (4.3-11.0)
[2024-12-07 06:24] LABS: ALBUMIN 3.4 g/dL (3.4-5.0); BILIRUBIN,TOTAL 2.1 mg/dL (0.2-1.0); CALCIUM, SERUM 7.9 mg/dL (8.5-10.1); MAGNESIUM 1.9 mg/dL (1.8-2.4); PHOSPHORUS 3.3 mg/dL (2.5-4.9); POTASSIUM 3.4 mmol/L (3.5-5.1)
[2024-12-07 06:45] LABS: PLATELET COUNT (AUTO) 39 K/uL (150-450)
[2024-12-07 07:01] LABS: ANISOCYTOSIS 1+; BAND % (MANUAL) 2 % (0.0-5.0); EOSINOPHILS % (MANUAL) 3 % (0-4); LYMPHOCYTES % (MANUAL) 11 % (16-48); MONOCYTES % (MANUAL) 17 % (0-11.0); NEUTROPHILS % (MANUAL) 67 (42-76); PLATELET ESTIMATE DECREASED
[2024-12-07 07:02] LABS: D-DIMER 7.52 mg/L(FEU (0.17-0.50); INR 1.73 (0.91-1.10); PARTIAL THROMBOPLASTIN TIME 69.8 SEC (24.3-34.3); PROTHROMBIN TIME 17.7 SECS (9.2-11.1)
[2024-12-07] MEDS: PROPOFOL 100 ML IV PRN (09:16)
[2024-12-07 09:41] LABS: ABG BASE EXCESS -13.3 mmol/L (-2.0-3.0); ABG OXYGEN SATURATION 95.9 % (94.0-98.0); ABG PCO2 54.8 mmHg (35.0-48.0); ABG PH 7.081 (7.350-7.450); ABG PO2 95.3 mmHg (83.0-108.0); COHb 0.6 % (0.5-1.5); MetHb 0.3 % (0.0-1.5); PEEP,BG 5 cm H2O; SITE, ABG RIGHT RADIAL; VT, ABG 450 mL
[2024-12-07] MEDS ORDERED: ETOMIDATE 2 MG/ML VIAL IV ONE (12:25)
[2024-12-07 13:35] LABS: ABG BASE EXCESS -11.5 mmol/L (-2.0-3.0); ABG OXYGEN SATURATION 89.7 % (94.0-98.0); ABG PCO2 43.9 mmHg (35.0-48.0); ABG PH 7.179 (7.350-7.450); ABG PO2 60.4 mmHg (83.0-108.0); ABG TOTAL HEMOGLOBIN 7.4 G/dL (13.5-17.5); COHb 0.6 % (0.5-1.5); MetHb 0.1 % (0.0-1.5); O2Hb 89.1 % (94.0-97.0); SITE, ABG RIGHT RADIAL; VT, ABG 475 mL
[2024-12-07] MEDS ORDERED: LORAZEPAM INJ 2 MG/ML VIAL IV PRN (15:30)
[2024-12-07] MEDS: MORPHINE SULFATE PF DRIP 100 MG in IV D5W 96 ML IV PRN (16:22)
[2024-12-07] MEDS ORDERED: TPN #5 IV SCH (18:08)
== END 2024-12-08 00:45 | DRG 441 ==
LOC: ER 21:20 → MED 11-24 03:03 → TELE 11-28 06:30 → ICU 11-30 04:58 → MED 12-01 17:49 → ICU 12-01 18:16
PROVIDERS: ADMIT Internal Medicine
PROC: 30233N1 Transfusion of Nonautologous Red Blood Cells into Peripheral Vein, Percutaneous Approach (ICD-10-PCS; 2024-11-30)
PROC: 30233R1 Transfusion of Nonautologous Platelets into Peripheral Vein, Percutaneous Approach (ICD-10-PCS; 2024-11-30)
PROC: 30233M1 Transfusion of Nonautologous Plasma Cryoprecipitate into Peripheral Vein, Percutaneous Approach (ICD-10-PCS; 2024-12-01)
PROC: 02HV33Z Insertion of Infusion Device into Superior Vena Cava, Percutaneous Approach (ICD-10-PCS; principal; 2024-12-02)
PROC: B548ZZA Ultrasonography of Superior Vena Cava, Guidance (ICD-10-PCS; 2024-12-02)
PROC: 5A09457 Assistance with Respiratory Ventilation, 24-96 Consecutive Hours, Continuous Positive Airway Pressure (ICD-10-PCS; 2024-12-04)
PROC: 30233K1 Transfusion of Nonautologous Frozen Plasma into Peripheral Vein, Percutaneous Approach (ICD-10-PCS; 2024-12-06)
PROC: 5A1935Z Respiratory Ventilation, Less than 24 Consecutive Hours (ICD-10-PCS; 2024-12-07)
PROC: 06HY33Z Insertion of Infusion Device into Lower Vein, Percutaneous Approach (ICD-10-PCS; 2024-12-07)
PROC: 0BH18EZ Insertion of Endotracheal Airway into Trachea, Via Natural or Artificial Opening Endoscopic (ICD-10-PCS; 2024-12-07)
DX: K76.82 Hepatic encephalopathy (principal); A41.9 Sepsis, unspecified organism; D65 Disseminated intravascular coagulation [defibrination syndrome]; E43 Unspecified severe protein-calorie malnutrition; Z51.5 Encounter for palliative care; J69.0 Pneumonitis due to inhalation of food and vomit; N17.0 Acute kidney failure with tubular necrosis; J96.01 Acute respiratory failure with hypoxia; K76.7 Hepatorenal syndrome; R65.21 Severe sepsis with septic shock; N39.0 Urinary tract infection, site not specified; D61.818 Other pancytopenia; R64 Cachexia; D62 Acute posthemorrhagic anemia; D68.8 Other specified coagulation defects; E87.4 Mixed disorder of acid-base balance; K92.2 Gastrointestinal hemorrhage, unspecified; J44.0 Chronic obstructive pulmonary disease with (acute) lower respiratory infection; F03.92 Unspecified dementia, unspecified severity, with psychotic disturbance; E87.0 Hyperosmolality and hypernatremia; F29 Unspecified psychosis not due to a substance or known physiological condition; K74.60 Unspecified cirrhosis of liver; J44.9 Chronic obstructive pulmonary disease, unspecified; E03.9 Hypothyroidism, unspecified; N18.9 Chronic kidney disease, unspecified; D53.9 Nutritional anemia, unspecified; B96.20 Unspecified Escherichia coli [E. coli] as the cause of diseases classified elsewhere; E83.39 Other disorders of phosphorus metabolism; N40.1 Benign prostatic hyperplasia with lower urinary tract symptoms; E87.6 Hypokalemia; E88.09 Other disorders of plasma-protein metabolism, not elsewhere classified; E83.9 Disorder of mineral metabolism, unspecified; E86.1 Hypovolemia; Z20.822 Contact with and (suspected) exposure to COVID-19; D69.59 Other secondary thrombocytopenia; Z68.22 Body mass index [BMI] 22.0-22.9, adult; B19.20 Unspecified viral hepatitis C without hepatic coma; E87.70 Fluid overload, unspecified; R58 Hemorrhage, not elsewhere classified; S41.102A Unspecified open wound of left upper arm, initial encounter; S41.101A Unspecified open wound of right upper arm, initial encounter; X58.XXXA Exposure to other specified factors, initial encounter; Y93.9 Activity, unspecified; Y92.129 Unspecified place in nursing home as the place of occurrence of the external cause; L98.8 Other specified disorders of the skin and subcutaneous tissue
CPT/HCPCS: 31720; 36415; 70450-TC; 71045-TC; 76700-TC; 80048-TC; 80053-TC; 80076-TC; 80202-TC; 81001; 82040-TC; 82140-TC; 82248-TC; 82550-TC; 82553; 82607-TC; 82728-TC; 82784; 82962-TC; 83540-TC; 83605-TC; 83735-TC; 83970; 84100-TC; 84155; 84165; 84439-TC; 84443-TC; 84478-TC; 85025-TC; 85027-TC; 85396; 85610-TC; 86225; 86235; 86334; 86431-TC; 86706; 86803; 86850-TC; 87040-TC; 87081-TC; 87086-TC; 87186-TC; 87340; 87522; 92526; 92611-TC; 93307-TC; 94760-TC; 94799-TC; A4216; A4217; A4223; A6253; A6403; A7526; A9563; G0378; G0480; J0330; J0692; J0696; J1200; J1815; J1938; J2274; J2470; J3370; J3371; J3430; J3475; J3480; J3490; J7030; J7050; J7060; J7070; J7120; P9012; P9016; P9017; P9034; P9047